=== PATIENT | male | born 1980 | race African-American/Black ===

== ENCOUNTER 2020-02-29 08:43 | Emergency (ER) | payer MEDICAID, OTHER ==
--- NOTE | 2020-02-29 11:37 | ER Document Report ---
ED General - General Chief Complaint: Congestion Stated Complaint: COUGH,CONGESTION TRAVEL OUTSIDE OF THE [place] IN LAST 30 DAYS: No - HPI Notes: Chief Complaint: Cough and congestion Historian: History obtained from patient HPI: This is a 40-year-old male presents to the ER complaining of cough, congestion x2 days. Patient says he had some temporary loss of taste and smell the other day but seems to return. He denies fever chills, chest pain, shortness of breath, abdominal pain, nausea vomiting diarrhea. Patient does have a history of asthma and says he was wheezing earlier today has been using at home albuterol inhaler with some relief. Has not had any known Covid contacts but does go to work around people daily. Patient's son is also being evaluated right now and has similar symptoms as him. Patient son symptoms started today. He has also had no known sick contacts. ROS: Constitutional: no fevers. HEENT: Nasal congestion CV: no chest pain or palpitations. Resp: Dry cough. GI: no abdominal pain, or n/v/d. : no dysuria, hematuria, or incont. MSK: no back pain, no joint swelling/redness. Skin: no rashes or itching. Neuro: no seizures, weakness, numbness, or confusion. Hematological: no ecchymosis or easy bleeding. Endocrine: no polyuria/polydipsia, no heat/cold intolerance. Psych: no SI/HI, AH/VH or memory loss. PMHx: Reviewed and agree as charted by RN. PSHx: Reviewed and agree as charted by RN. SOCHx: Reviewed and agree as charted by RN. FHX: No significant familial comorbid conditions directly related to patient complaint Current Medications: Reviewed and agree with the patient medications as charted by the RN. Allergies: Reviewed and agree with the listed allergies as charted by the RN Physical Exam: Vitals: Reviewed in chart as documented by RN. General: Alert and in NAD. Head: Normocephalic; atraumatic Eyes: PERRLA, Conjunctivae clear sclerae non-icteric bilat ENT: Nosemucosa erythematous and inflamed. No active drainage. Patent bilateral. Mild bilateral maxillary tenderness. Neck: trachea midline, no unilateral swelling/tenderness/lymphadenopathy CV: RRR, no M/R/G; symmetric distal pulses Resp: Mild coarse lung sounds to bilateral upper harden, good air movement bilaterally. No rhonchi stridor or active wheezing. GI: abd soft and nondistended. NTTP. normal BS. no masses/HSM. no CVAT bilat MSK: FROM of all extremities. No midline CTL spine tenderness/deformity Skin: warm, moist, good turgor. no rash/lesions Neuro: Alert and oriented X 4. following CN 2-12 intact. no unilateral weakness/numbness Psych: No SI/HI or AH/VH. ED Results: Medical Decision-Making: Medical Decision-making/Differential Diagnosis: Consider various etiologies including but not limited to Covid, viral syndrome, bronchitis, URI, pneumonia, asthma exacerbation, sinusitis , strep pharyngitis, viral pharyngitis, other pharyngitis, kang-tonsillar abscess (unlikely), retropharyngeal abscess (unlikely), Acute Suppurative Otitis media, otalgia, upper respiratory infection, viral syndrome, bronchitis, sinusitis, ect Plan-we will get Covid testsend out. The patient a dose of steroids in the ER and discharge with a prescription for steroids and some [id number] medication for congestion. Also will try to order patient in albuterol nebulizer at his request. Patient says he has a home albuterol inhaler that he is almost out of but says he gets significantly more relief with the nebulizer. He will self quarantine at home until he is called with results. Strict return factors discussed. His oxygen sats are 99% on room air no respiratory distress. Patient is nontoxic-appearing and appropriate for outpatient management. Charge factors were discussed PCP follow-up this week for recheck This course of action was discussed with the patient and/or family. They were amenable to this, verbalized understanding, and were without further questions. - Related Data Allergies/Adverse Reactions: No Known Allergies Allergy (Unverified 05/25/12 18:45) Past Medical History - Social History Smoking Status: Never Smoker Family History: Arthritis, DM, Malignancy - Past Medical History Cardiac Medical History: Reports: Hx Hypertension - does not take meds Pulmonary Medical History: Reports: Hx Asthma, Hx COPD Neurological Medical History: Reports: Hx Migraine, Hx Seizures Endocrine Medical History: Reports: Hx Diabetes Mellitus Type 2 Musculoskeletal Medical History: Reports Hx Arthritis, Reports Hx Musculoskeletal Deformity, Reports Hx Musculoskeletal Trauma Traumatic Medical History: Reports: Hx Spine Fracture - Immunizations Hx Diphtheria, Pertussis, Tetanus Vaccination: Yes Physical Exam - Vital signs Vitals: Temp Pulse Resp BP Pulse Ox 98.3 F 73 14 137/85 H 100 02/29/20 08:52 02/29/20 08:52 02/29/20 08:52 02/29/20 08:52 02/29/20 08:52 Course - Re-evaluation Re-evalutation: 02/29/20 11:45 Patient refused Covid testing when RN was trying to administer test. She says she did not even enter the nare with the swab when the patient suddenly pulled back and refused. We will canceled Covid tests. Patient was educated about risks associated with not being tested as well as risk of transmission to other people if he is not tested and is actually Covid positive. Encourage patient to get tested at his convenience soon as possible. DC patient with nebulizer and albuterol while prescriptions as well as steroid burst. He may use [id number] cough and cold medicines for congestion. PCP follow-up this coming week return factors discussed. - Vital Signs Vital signs: Temp Pulse Resp BP Pulse Ox 98.3 F 73 14 137/85 H 100 02/29/20 08:52 02/29/20 08:52 02/29/20 08:52 02/29/20 08:52 02/29/20 08:52 - Laboratory Results Critical Laboratory Results Reviewed: No Critical Results - Radiology Results Critical Radiology Results Reviewed: No Critical Results Discharge - Discharge Clinical Impression: Cough, Nasal congestion Condition: Stable Disposition: HOME, SELF-CARE Instructions: COVID-19 Guidance for Persons Under Investigation Additional Instructions: Self quarantine at home until you are called with your Covid results and further instructions. do not return to work unless you have a negative covid test or if you are covid positive you need to wait 10 days and then go 3 days without fevers or symptoms without having taken any medications. May take Tylenol for headaches, body aches, or fever/chills. Drink plenty of fluids to stay hydrated. Take medications as prescribed. Follow-up with your primary care doctor this week for recheck. Return to the ER if your condition worsens. Prescriptions: Albuterol Sulfate [Ventolin 0.083% Neb 2.5 mg/3 mL Ampul] 1 vial NEB Q4HP PRN #60 vial PRN Reason: Prednisone [Deltasone 20 mg Tablet] 60 mg PO DAILY 5 Days #15 tablet Nebulizer and Compressor [Portable Nebulizer System] 1 each MC ASDIR PRN #1 each PRN Reason: Forms: Return to Work
[2020-02-29] MEDS ORDERED: PREDNISONE 20 MG TABLET PO ONE (11:44)
[2020-02-29 12:29] VITALS: BP 140/72
== END 2020-02-29 12:30 | disposition home or self-care (01) ==
LOC: ER 08:43
DX: R09.81 Nasal congestion (principal); R05 Cough; J44.9 Chronic obstructive pulmonary disease, unspecified; I10 Essential (primary) hypertension; E11.9 Type 2 diabetes mellitus without complications; Z79.899 Other long term (current) drug therapy; Z20.828 Contact with and (suspected) exposure to other viral communicable diseases
CPT/HCPCS: 99283; J7512